=== PATIENT | male | born 1955 | race Caucasian/White ===

== ENCOUNTER 2023-07-24 03:54 | Day surgery (SDC) | payer OTHER ==
[2023-07-20 12:18] VITALS: BMI 25.0
[2023-07-24] MEDS ORDERED: PROPOFOL 20 ML ONE (08:51)
[2023-07-24] MEDS ORDERED: MIDAZOLAM HCL 2 MG/2 ML SINGLE DOSE VIAL ONE (08:51)
[2023-07-24] MEDS ORDERED: ONDANSETRON 4 MG/2 ML VIAL ONE (08:51)
[2023-07-24] MEDS ORDERED: ceFAZolin SODIUM 1 GM VIAL ONE (09:05)
[2023-07-24] MEDS ORDERED: ceFAZolin SODIUM 1 GM VIAL IVPB ONE (09:07)
[2023-07-24] MEDS ORDERED: ELECTROLYTE-148 SOLN 1,000 ML IV SCH (09:45)
[2023-07-24 10:03] VITALS: RESP 20
[2023-07-24 10:51] VITALS: BP 166/90; PULSE 60; TEMP 97.3
== END 2023-07-24 11:14 | disposition home or self-care (01) ==
LOC: JASU-SURG 03:54
PROVIDERS: ATTEND Urology
PROC: 0TF4XZZ Fragmentation in Left Kidney Pelvis, External Approach (ICD-10-PCS; principal; 2023-07-24 08:45)
DX: N20.0 Calculus of kidney (principal)